=== PATIENT | female | born 2005 | race Caucasian/White ===

== ENCOUNTER 2025-06-12 08:09 | Emergency (ER) | payer BC ==
[~2025-06-12] VITALS: Ht 167.6 cm; Wt 91.6 kg
[2025-06-12] MEDS: IV NS 0.9% 1,000 ML BAG IV ONE (08:56)
[2025-06-12 08:59] LABS: PLATELET COUNT (AUTO) 276 K/uL (150-450); RED BLOOD CELL COUNT(AUTO) 4.96 MIL/uL (4.0-5.2); RED CELL DISTRIBUTION WIDTH 12.4 % (11.5-15.0); WHITE BLOOD COUNT (AUTO) 13.7 K/uL (4.3-11.0)
[2025-06-12 09:07] LABS: CALCIUM, SERUM 9.1 mg/dL (8.5-10.1); CREATININE 1.0 mg/dL (0.6-1.3); SODIUM SERUM 139.0 mmol/L (136-145); UREA NITROGEN, BLOOD 12.0 mg/dL (7-18)
[2025-06-12 09:13] LABS: ASPARTATE AMINOTRANSFERASE 20.0 U/L (15-37); TOTAL PROTEIN, SERUM 7.5 g/dL (6.4-8.2)
[2025-06-12 11:14] VITALS: BP 118/75; TEMP 98.3; O2SAT 98
== END 2025-06-12 11:15 | disposition home or self-care (01) ==
LOC: ER 08:17
DX: K59.00 Constipation, unspecified (principal); R11.2 Nausea with vomiting, unspecified; R10.2 Pelvic and perineal pain; Z88.1 Allergy status to other antibiotic agents; Z88.2 Allergy status to sulfonamides
CPT/HCPCS: 99284; 74176; 96360; 85025; 80048; 80076; 36415; 84702; J7030